=== PATIENT | female | born 1940 | race Caucasian/White ===

== ENCOUNTER 2021-05-12 07:34 | Outpatient (CLI) | payer OTHER | END 2021-05-12 07:43 | disposition home or self-care (01) | LOC: TOM 07:34 | PROVIDERS: ATTEND Internal Medicine Gastroenterology | DX: K57.90 Diverticulosis of intestine, part unspecified, without perforation or abscess without bleeding (principal); R19.5 Other fecal abnormalities; K63.5 Polyp of colon; K56.601 Complete intestinal obstruction, unspecified as to cause ==